=== PATIENT | female | born 2000 | race Two or more races ===

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

== ENCOUNTER 2024-03-08 02:43 | Emergency (ER) | payer OTHER ==
[2024-03-08 02:48] VITALS: BP 129/84; PULSE 79; RESP 20; TEMP 97.9; BMI 40.2
[2024-03-08 03:19] LABS: PH,URINE 5.5 (5.0-8.0); URINE APPEARANCE CLEAR; URINE BILIRUBIN NEGATIVE (NEGATIVE); URINE COLOR YELLOW; URINE GLUCOSE (UA) NEGATIVE (NEGATIVE); URINE KETONE NEGATIVE (NEGATIVE); URINE LEUK ESTERASE NEGATIVE (NEGATIVE); URINE NITRITE NEGATIVE (NEGATIVE); URINE PROTEIN NEGATIVE (NEGATIVE)
[2024-03-08 03:21] LABS: HCG,QUALITATIVE URINE Negative
== END 2024-03-08 04:49 | disposition home or self-care (01) ==
LOC: JER 02:43
DX: R10.2 Pelvic and perineal pain (principal); G89.29 Other chronic pain; R11.0 Nausea; R53.83 Other fatigue
CPT/HCPCS: 36415; 81003; 84703; 87086; 87491; 87591; 87661; 99283-25